=== PATIENT | female | born 1950 | race Caucasian/White ===

== ENCOUNTER → 2017-01-28 | Outpatient (CLI) | payer BC ==
[~2017-01-28] MED LIST: AMT25 PO; ASPEC81 PO; SIMV40TA2 PO; SULF800T23 PO
--- NOTE | 2017-01-28 16:42 | MAMMOGRAPHY REPORT ---
BILATERAL DIGITAL SCREENING MAMMOGRAM WITH CAD: 01/28/2017 CLINICAL HISTORY: Routine screening. Patient has no complaints. TECHNIQUE: Current study was also evaluated with a Computer Aided Detection (CAD) system. Bilatera l CC and MLO views were obtained. COMPARISON: Comparison is made to exams dated: 03/28/2015 mammogram, 03/27/2014 mammogram, 03/26/2013 ma mmogram, 03/16/2012 mammogram, 03/16/2011 mammogram, and 03/13/2010 mammogram - [facility] enter. BREAST COMPOSITION: There are scattered areas of fibroglandular density in both breasts. FINDINGS: No suspicious masses, calcifications, or areas of architectural distortion are noted in e ither breast. There has been no significant interval change compared to prior exams. IMPRESSION: ACR BI-RADS CATEGORY 1: NEGATIVE There is no mammographic evidence of malignancy. A 1 year screening mammogram is recommended. The p atient will receive written notification of the results. Approximately 10% of breast cancers are not detected with mammography. A negative mammographic repor t should not delay biopsy if a clinically suggestive mass is present. Hedy Ruvalcaba M.D. ah/:01/28/2017 16:05:10 Youth Liaison Officer: Aurora ARCINIEGA)(Vinny), [facility] letter sent: Normal 1/2 BI-RADS Code: ACR BI-RADS Category 1: Negative
== END | disposition home or self-care (01) ==
LOC: C.MAMM 14:31
DX: Z12.31 Encounter for screening mammogram for malignant neoplasm of breast (principal)

== ENCOUNTER → 2017-07-28 | Outpatient (CLI) | payer BC ==
--- NOTE | 2017-07-28 12:14 | DIAGNOSTIC IMAGING REPORT ---
L UPPER EXT JOINT WITHOUT CLINICAL HISTORY: PAIN pain TECHNIQUE: Multiaxial MRI acquisition COMPARISON STUDY: None FINDINGS: Signal characteristics of the osseous structures are in general are unremarkable. There is a suggestion of a mild contusion of the acromion. There are mild hyperplastic changes of the acromioclavicular joint. This creates minimal impingement upon the supraspinatus musculotendinous junction. Structures the rotator cuff indicate tendinopathy of the supraspinatus tendon. There is a partial thickness tear of the anterior or leading-edge of the supraspinatus tendon although a full-thickness tear is not present. There is no evidence for musculotendinous retraction. The infraspinatus and subscapularis tendons are considered unremarkable. Biceps tendon shows a trace amount of spinal fluid although well-defined tear is not appreciated. There is a small focal tear of the anterior superior aspect of the glenoid labrum. There is a mild fibrillation and/or degeneration of the articular services the labrum throughout. IMPRESSION: 1. Mild degenerative change articular surfaces of the glenohumeral joint. 2. Mild hypertrophic change acromioclavicular joint with mild impingement upon the anterior margin of the supraspinatus musculotendinous junction. 3. Moderate supraspinatus tendinitis with a partial thickness tear at its anterior or leading-edge. 4. Small focal tear anterior superior glenoid labrum with moderate degenerative change of all remaining articular services of the labrum. 5. No evidence for full-thickness rotator cuff tear. The above report was generated using voice recognition software. It may contain grammatical, syntax or spelling errors. Electronically signed by: Benito Farias M.D. 07/28/2017 12:13 PM Dictated Date/Time: 07/28/2017 12:08 PM
== END | disposition home or self-care (01) ==
LOC: C.MRI 09:53
PROVIDERS: ATTEND Orthopaedic Surgery Sports Medicine
DX: M89.8X1 Other specified disorders of bone, shoulder (principal); M25.812 Other specified joint disorders, left shoulder; M75.112 Incomplete rotator cuff tear or rupture of left shoulder, not specified as traumatic

== ENCOUNTER → 2017-07-29 | Outpatient (CLI) | payer BC ==
--- NOTE | 2017-07-29 11:53 | DIAGNOSTIC IMAGING REPORT ---
CHEST 2 VIEWS ROUTINE CLINICAL HISTORY: WEIGHT LOSS dyspnea COMPARISON STUDY: No previous studies for comparison. FINDINGS: The bones soft tissues and hemidiaphragms are normal. The cardiomediastinal silhouette is normal. The lungs are clear. The pulmonary vasculature is normal. Minimal bibasilar atelectasis IMPRESSION: Minimal basilar atelectasis. Otherwise negative chest. The above report was generated using voice recognition software. It may contain grammatical, syntax or spelling errors. Electronically signed by: Benito Farias M.D. 07/29/2017 11:51 AM Dictated Date/Time: 07/29/2017 11:50 AM
== END | disposition home or self-care (01) ==
LOC: C.RAD 11:18
DX: R63.4 Abnormal weight loss (principal)

== ENCOUNTER 2018-02-01 03:47 | Emergency (ER) | payer BC ==
[~2018-02-01] VITALS: Ht 157.5 cm; Wt 59.6 kg
[2018-02-01 03:51] VITALS: TEMP 36.7; Ht 157.5 cm; Wt 59.6 kg
[2018-02-01] MEDS ORDERED: ACETAMINOPHEN IV 100 ML IV STA (04:04)
[2018-02-01] MEDS ORDERED: SODIUM CHLORIDE 0.9% 1000ML 1,000 ML IV STA (04:04)
--- NOTE | 2018-02-01 04:04 | EMERGENCY ROOM VISIT NOTE ---
History Report prepared by Mariangel: Nathaniel Ortiz Under the Supervision of: Dr. Jayson Cloud M.D. First contact with patient: 03:55 Chief Complaint: ABDOMINAL PAIN Stated Complaint: PAIN IN RIGHT SIDE,DIARRHEA History of Present Illness The patient is a 67 year old female who presents to the Emergency Room with complaints of constant RUQ abdominal pain beginning three days ago. The patient states she is also experiencing water diarrhea. She reports she has had several episodes of diarrhea. The patient notes she woke up in the middle of the night from her pain, and she could not take it anymore. She states she was hot and sweating. The patient reports she was recently treated for Lyme's Disease with 180 tablets of doxycycline. She notes was afraid she was having trouble with her gallbladder. The patient states she has a history of kidney stones, but this pain is different. She also reports a history of a hiatal hernia and diverticulitis. The patient notes she has had a large amount of family stress recently, and she is getting overwhelmed. She states she intermittently takes Klonopin because she does not like the side effects of the medication. The patient reports she has lost 20 pounds over the past year because she is not eating as much as she normally does. She denies a history of gallbladder problem , gallstones, c-diff, or abnormal bowel disease. The patient also denies oily smelling feces, urinary symptoms, rashes, swelling in her legs, and taking something for her discomfort. Source of History: patient Onset: three days ago Position: abdomen (RUQ) Timing: constant Associated Symptoms: + diarrhea (watery), No urinary symptoms, No rash Note: Associated symptoms: hot and sweaty Denies: oily smelling feces, swelling in her legs, taking something for her discomfort Review of Systems See HPI for pertinent positives & negatives. A total of 10 systems reviewed and were otherwise negative. Past Medical & Surgical Medical Problems: (1) History of hysterectomy (2) Kidney stone Family History Diabetes mellitus FHx: cancer FHx: heart disease Hypertension Kidney disease Kidney stones Social History Smoking Status: Never Smoker Smokeless Tobacco Use: No Alcohol Use: none Housing Status: lives alone Occupation Status: unemployed Current/Historical Medications Scheduled Aspirin Enteric Coated (Ecotrin Or Generic), 81 MG PO DAILY Cholecalciferol (Vitamin D3), 2,000 UNITS PO DAILY Clonazepam (Klonopin), 0.25 MG PO DIRECTED Cyanocobalamin (Vitamin B-12), 1,000 MCG PO DAILY Cyclosporine (Ophth) (Restasis), 1 DROPS OPB BID Ranitidine (Zantac), 300 MG PO BID Allergies Coded Allergies: No Known Allergies (Verified , 02/01/18) Physical Exam Vital Signs Date Time Temp Pulse Resp B/P (MAP) Pulse Ox O2 Delivery O2 Flow Rate FiO2 02/01/18 06:26 81 18 110/67 99 Room Air 02/01/18 05:57 82 14 95 02/01/18 05:52 124/63 02/01/18 05:31 124/63 02/01/18 05:27 86 21 96 02/01/18 05:27 88 02/01/18 05:22 81 97 02/01/18 05:00 119/65 02/01/18 04:52 85 18 96 02/01/18 04:22 81 16 100 02/01/18 04:21 80 16 107/67 100 Room Air 02/01/18 04:17 75 17 98 02/01/18 03:51 36.7 91 18 111/76 99 Room Air Physical Exam GENERAL: Patient is anxious appearing and in mild distress. EYES: No scleral icterus, unremarkable pupils. ENT: Mucous membranes moist, no nasal congestion. NECK: No masses appreciated, no meningismus, trachea is midline. RESPIRATORY: No dyspnea. Clear to auscultation and equal bilaterally. No wheeze , no rhonchi. CARDIOVASCULAR: Regular rate and rhythm. No murmurs, rubs, gallops appreciated. GASTROINTESTINAL: Abdomen soft, vague tenderness to the right upper and lower quadrants, as well as the suprapubic region, no peritonitis. Bowel sounds positive. No masses appreciated. BACK: No midline tenderness, no CVA tenderness EXTREMITIES: Normal motion all extremities, no cyanosis, no edema. NEUROLOGIC: Alert and oriented, no acute motor or sensory deficits, no focal weakness, cranial nerves grossly intact. SKIN: No rash, no jaundice, no diaphoresis. Medical Decision & Procedures ER Provider Diagnostic Interpretation: Stat Rad Radiology results and stated below per my review and radiologist interpretation: CT ABDOMEN & PELVIS With Contrast: Fluid within nondistended loops of small bowel and within stomach without bowel wall thickening or surrounding inflammation can be normal or can be seen with gastroenteritis in the right clinical setting. Cholelithiasis. No acute cholecystitis. No appendicitis, inflammatory changes of bowel or bowel obstruction. Small hiatal hernia. No free fluid. No free air. Aorta, liver, spleen, pancreas, and kidneys are unremarkable. Radiologist: Manan Wilkinson M.D. Laboratory Results 02/01/18 04:20 Red Blood Count 4.25, Mean Corpuscular Volume 93.9, Mean Corpuscular Hemoglobin 32.7, Mean Corpuscular Hemoglobin Concent 34.8, Mean Platelet Volume 9.0, Neutrophils (%) (Auto) 43.4, Lymphocytes (%) (Auto) 36.2, Monocytes (%) (Auto) 18.8, Eosinophils (%) (Auto) 1.2, Basophils (%) (Auto) 0.4, Neutrophils # (Auto ) 2.09, Lymphocytes # (Auto) 1.75, Monocytes # (Auto) 0.91, Eosinophils # (Auto ) 0.06, Basophils # (Auto) 0.02 02/01/18 04:20 Test 02/01/18 04:16 02/01/18 04:20 02/01/18 05:20 Bedside Hemoglobin 13.9 g/dl (12.0-16.0) Bedside Hematocrit 41 % (37-47) Bedside Sodium 141 mEq/L (135-144) Bedside Potassium 3.6 mEq/L (3.3-5.0) Bedside Chloride 104 mEq/L (101-112) Bedside Total CO2 25 mEq/l (24-31) Bedside Blood Urea Nitrogen 13 mg/dl (7-18) Bedside Creatinine 0.8 mg/dl (0.6-1.3) Bedside Glucose (other) 95 mg/dl (70-99) Bedside Ionized Calcium (Renetta) 1.17 mmol/l (1.12-1.32) White Blood Count 4.83 K/uL (4.8-10.8) Red Blood Count 4.25 M/uL (4.2-5.4) Hemoglobin 13.9 g/dL (12.0-16.0) Hematocrit 39.9 % (37-47) Mean Corpuscular Volume 93.9 fL (80-100) Mean Corpuscular Hemoglobin 32.7 pg (25-34) Mean Corpuscular Hemoglobin Concent 34.8 g/dl (32-36) Platelet Count 200 K/uL (130-400) Mean Platelet Volume 9.0 fL (7.4-10.4) Neutrophils (%) (Auto) 43.4 % Lymphocytes (%) (Auto) 36.2 % Monocytes (%) (Auto) 18.8 % Eosinophils (%) (Auto) 1.2 % Basophils (%) (Auto) 0.4 % Neutrophils # (Auto) 2.09 K/uL (1.4-6.5) Lymphocytes # (Auto) 1.75 K/uL (1.2-3.4) Monocytes # (Auto) 0.91 K/uL (0.11-0.59) Eosinophils # (Auto) 0.06 K/uL (0-0.5) Basophils # (Auto) 0.02 K/uL (0-0.2) RDW Standard Deviation 41.7 fL (36.4-46.3) RDW Coefficient of Variation 12.4 % (11.5-14.5) Immature Granulocyte % (Auto) 0.0 % Immature Granulocyte # (Auto) 0.00 K/uL (0.00-0.02) Anion Gap 6.0 mmol/L (3-11) Est Creatinine Clear Calc Drug Dose 49.5 ml/min Estimated GFR () 80.5 Estimated GFR (Non- 69.4 BUN/Creatinine Ratio 13.6 (10-20) Calcium Level 8.5 mg/dl (8.5-10.1) Total Bilirubin 0.6 mg/dl (0.2-1) Direct Bilirubin 0.1 mg/dl (0-0.2) Aspartate Amino Transf (AST/SGOT) 17 U/L (15-37) Alanine Aminotransferase (ALT/SGPT) 21 U/L (12-78) Alkaline Phosphatase 69 U/L (45-117) Troponin I < 0.015 ng/ml (0-0.045) Total Protein 6.9 gm/dl (6.4-8.2) Albumin 3.6 gm/dl (3.4-5.0) Lipase 112 U/L (73-393) Urine Color YELLOW Urine Appearance CLEAR (CLEAR) Urine pH 6.0 (4.5-7.5) Urine Specific [place] 1.025 (1.000-1.030) Urine Protein NEG (NEG) Urine Glucose (UA) NEG (NEG) Urine Ketones NEG (NEG) Urine Occult Blood TRACE (NEG) Urine Nitrite NEG (NEG) Urine Bilirubin NEG (NEG) Urine Urobilinogen NEG (NEG) Urine Leukocyte Esterase NEG (NEG) Urine WBC (Auto) 0 /hpf (0-5) Urine RBC (Auto) 0-4 /hpf (0-4) Urine Hyaline Casts (Auto) 0 /lpf (0-5) Urine Epithelial Cells (Auto) 0-5 /lpf (0-5) Urine Bacteria (Auto) NEG (NEG) Laboratory results as reviewed by me. Medications Administered Medications (Trade) Dose Ordered Sig/Dariana Route Start Time Stop Time Status Last Admin Dose Admin Sodium Chloride 1,000 ml @ 999 mls/hr Q1H1M STAT IV 02/01/18 04:04 02/01/18 05:04 DC 02/01/18 04:18 999 MLS/HR Acetaminophen 100 ml @ 400 mls/hr NOW STAT IV 02/01/18 04:04 02/01/18 04:18 DC 02/01/18 04:18 400 MLS/HR ECG Per My Interpretation Indication: chest pain Rate (beats per minute): 84 Rhythm: normal sinus Findings: no acute ischemic change, no ectopy, other (QTc of 444) ED Course 0357: The patient was evaluated in room B02. A complete history and physical exam was performed. 0451: The nurse informed me the patient is experiencing intermittent chest pressure at night. 0541: I reevaluated the patient and discussed current exam findings. We are waiting for her troponin level. 0559: Reevaluated the patient. Discussed results and discharge instructions: she verbalized understanding and agreement. The patient is ready for discharge. Medical Decision Differential: Appendicitis, Diverticulitis, PUD/Gastritis, Biliary Pathology, UTI, Pyelonephritis, Renal Colic, Bowel Obstruction, Aortic Pathology, Acute Coronary Syndrome, amongst other pathologies entertained. 67 yr old female arrives with complaint of diarrhea and abdominal pain ( essentially diffuse). No peritonitis on exam and does not have Varner's sign by exam. Added to complaints that she has been having evening CP while in bed but with normal EKG and negative Trop seems this is not ACS. She is quite anxious about many of the stressors in her life, admitting poor eating habits and thus I suspect this is weight loss issue. CT with gastroenteritis findings but no acute surgical needs. There is gallstone but I do not feel there is acute cholecystitis nor obstructing stone. She has no evidence appy nor diverticulitis. I have asked she follow up with her PCP for further evaluation and treatment. We discussed symptoms requiring RTED. Stable throughout stay. Medication Reconcilliation Current Medication List: was personally reviewed by me Blood Pressure Screening Patient's blood pressure: Normal blood pressure Blood pressure disposition: Did not require urgent referral Impression Primary Impression: Acute gastroenteritis Additional Impressions: Gall stones Intermittent chest pain Scribe Attestation The scribe's documentation has been prepared under my direction and personally reviewed by me in its entirety. I confirm that the note above accurately reflects all work, treatment, procedures, and medical decision making performed by me. Departure Information Dispostion Home / Self-Care Referrals Isacc Sheppard Jr,D.O. (PCP) Forms Call Back Authorization, HOME CARE DOCUMENTATION FORM, IMPORTANT VISIT INFORMATION Patient Instructions ED Gastroenteritis Viral, My [facility] Additional Instructions It is important to keep well hydrated. Return if fevers, increasing pain, vomiting, or blood in stool or other concerns. Follow up with your primary provider to discuss your gallstones (HIDA Scan) and the periodic chest pains you have (Stress Test). We are always here to help! Problem Qualifiers
[2018-02-01] MEDS ORDERED: OPTIRAY 320 IV PRN (04:15)
[2018-02-01 04:30] LABS: ISTAT CREATININE 0.8 mg/dl (0.6-1.3); ISTAT IONIZED CALCIUM 1.17 mmol/l (1.12-1.32); ISTAT POTASSIUM 3.6 mEq/L (3.3-5.0)
[2018-02-01 04:32] LABS: BASO % 0.4 %; BASO ABS # 0.02 K/uL (0-0.2); EOS % 1.2 %; EOS ABS # 0.06 K/uL (0-0.5); HEMATOCRIT 39.9 % (37-47); HEMOGLOBIN 13.9 g/dL (12.0-16.0); LYMPH % 36.2 %; LYMPH ABS # 1.75 K/uL (1.2-3.4); MEAN CELL VOLUME 93.9 fL (80-100); MEAN CORPUSCULAR HEMOGLOBIN 32.7 pg (25-34); MEAN CORPUSCULAR HGB CONC 34.8 g/dl (32-36); MONO % 18.8 %; MONO ABS # 0.91 K/uL (0.11-0.59); NEUT % 43.4 %; NEUT ABS # 2.09 K/uL (1.4-6.5); PLATELET COUNT 200 K/uL (130-400); RED CELL DISTRIBUTION WIDTH CV 12.4 % (11.5-14.5); RED CELL DISTRIBUTION WIDTH SD 41.7 fL (36.4-46.3); WHITE BLOOD COUNT 4.83 K/uL (4.8-10.8)
[2018-02-01] MEDS ORDERED: CYAN10005 PO (04:35)
[2018-02-01] MEDS ORDERED: CHOL2000 PO (04:35)
[2018-02-01] MEDS ORDERED: CLON0.5T3 PO (04:35)
[2018-02-01] MEDS ORDERED: CYCL0.052 OPB (04:35)
[2018-02-01] MEDS ORDERED: RANI150T85 PO (04:35)
[2018-02-01] MEDS ORDERED: ASPI-319 PO (04:35)
[2018-02-01 04:58] LABS: ALBUMIN 3.6 gm/dl (3.4-5.0); CALCIUM 8.5 mg/dl (8.5-10.1); CREATININE 0.86 mg/dl (0.60-1.20); POTASSIUM 3.6 mmol/L (3.5-5.1)
[2018-02-01 05:00] LABS: TOTAL PROTEIN 6.9 gm/dl (6.4-8.2)
[2018-02-01 06:26] VITALS: BP 110/67; PULSE 81; O2SAT 99
--- NOTE | 2018-02-01 07:04 | DIAGNOSTIC IMAGING REPORT ---
CT ABD/PELVIS IV CONTRAST ONLY CLINICAL HISTORY: Right-sided abdominal pain. Suprapubic pain. Diarrhea. COMPARISON STUDY: None. TECHNIQUE: Following the IV administration of 92 mL of Optiray-320, CT scan of the abdomen and pelvis was performed from the lung bases to the proximal femurs. Images are reviewed in the axial, sagittal, and coronal planes. IV contrast was administered without complication. A dose lowering technique was utilized adhering to the principles of ALARA. CT DOSE: 264.61 mGy.cm FINDINGS: Lower chest: There are subtle right lower lobe groundglass opacities, likely atelectatic. The right middle lobe atelectatic changes. There is a hiatal hernia. Liver: The contrast-enhanced liver is normal in size, contour, and attenuation. There is no intrahepatic biliary ductal dilatation. The hepatic veins and portal veins are patent. Gallbladder: Unremarkable. Spleen: Normal in size and attenuation. Pancreas: Unremarkable. Adrenal glands: Unremarkable. Kidneys: There is symmetric renal cortical enhancement. The kidneys are normal in size without hydronephrosis. Bowel: There are no transition zones to indicate bowel obstruction. The appendix appears normal. There is no acute diverticulitis. There is mild small bowel wall thickening. There is fluid within the colon. The findings are consistent with an enteritis. Peritoneum: There is no intraperitoneal free air or abdominal ascites. Vasculature: The abdominal aorta is normal in course and caliber. Adenopathy: None. Pelvic viscera: The uterus appears surgically absent Skeletal structures: There is an old T12 compression fracture IMPRESSION: 1. No evidence of bowel obstruction. No evidence of free air 2. No evidence of acute appendicitis. No evidence of acute diverticulitis 3. Fluid-filled right and transverse colon. Distal ileal small bowel wall thickening. The findings are consistent with a nonspecific enteritis Electronically signed by: Nacho Tejeda M.D. 02/01/2018 7:03 AM Dictated Date/Time: 02/01/2018 6:59 AM
== END 2018-02-01 06:30 | disposition home or self-care (01) ==
LOC: C.EDB 03:47
DX: K52.9 Noninfective gastroenteritis and colitis, unspecified (principal); K80.20 Calculus of gallbladder without cholecystitis without obstruction; R07.9 Chest pain, unspecified; Z87.442 Personal history of urinary calculi; Z79.82 Long term (current) use of aspirin; Z79.899 Other long term (current) drug therapy